=== PATIENT | male | born 1935 | race Two or more races ===

== ENCOUNTER 2023-09-12 21:55 | Inpatient (IN) | payer OTHER ==
[~2023-09-12] VITALS: Ht 162.6 cm; Wt 59.9 kg
[2023-09-12 21:55] VITALS: BP 165/118; PULSE 173; RESP 23; TEMP 97; O2SAT 95
[2023-09-12] MEDS: DILTIAZEM 125 MG in DEXTROSE 5% 100 ML IV ONE (22:05)
[2023-09-12 22:19] LABS: BASOPHILS # (AUTO) 0.1 K/uL (0.00-0.22); BASOPHILS % (AUTO) 0.6 % (0.0-2.0); EOSINOPHILS # (AUTO) 0.4 K/uL (0-0.4); EOSINOPHILS % (AUTO) 3.4 % (0.0-4.0); HEMATOCRIT 43.9 % (36-52); HEMOGLOBIN 14.2 g/dL (12.0-18.0); LYMPHOCYTES # (AUTO) 2.1 K/uL (2.0-11.5); LYMPHOCYTES % (AUTO) 17.9 % (20.5-51.1); MEAN CORPUSCULAR HEMOGLOBIN 30 pg (27-31); MEAN CORPUSCULAR HGB CONC 32 g/dL (33-37); MEAN CORPUSCULAR VOLUME 93.9 fL (80-94); MONOCYTES # (AUTO) 0.8 K/uL (0.8-1.0); MONOCYTES % (AUTO) 7.2 % (1.7-9.3); NEUTROPHILS # (AUTO) 8.1 K/uL (1.8-7.7); NEUTROPHILS % (AUTO) 70.9 % (42.2-75.2); PLATELET COUNT (AUTO) 356 K/uL (140-450); RED BLOOD CELL COUNT(AUTO) 4.68 MIL/uL (4.20-6.10); RED CELL DISTRIBUTION WIDTH 19.2 % (11.6-13.7); WHITE BLOOD COUNT (AUTO) 11.5 K/uL (4.8-10.8)
[2023-09-12] MEDS: DILTIAZEM 25 MG/5 ML VIAL IVP ONE (22:22)
[2023-09-12] MEDS: methylPREDNISolone SS 125 MG/2 ML VIAL IVP ONE (22:24)
[2023-09-12 22:29] LABS: CALCIUM 8.8 mg/dL (8.5-10.1); CARBON DIOXIDE 26.3 mmol/L (21-32); CHLORIDE 103 mmol/L (98-107); CREATININE 1.3 mg/dL (0.6-1.3); GLUCOSE 144 mg/dL (74-106); POTASSIUM 4.3 mmol/L (3.5-5.1); SODIUM SERUM 140 mmol/L (136-145); UREA NITROGEN, BLOOD 20 mg/dL (7-18)
[2023-09-12] MEDS: MAG SULF 2000 MG/WATER PREMIX 50 ML IV ONE (22:30)
[2023-09-12 22:32] LABS: ALBUMIN 3.5 g/dL (3.4-5.0); BILIRUBIN,DIRECT 0.2 mg/dL (0.0-0.3); TOTAL PROTEIN, SERUM 6.4 g/dL (6.4-8.2)
[2023-09-12 22:36] LABS: BLOOD GAS BASE EXCESS -0.9 mmol/L (-2.0-2.0); BLOOD GAS PCO2 31.5 mmHg (35-45); BLOOD GAS PH 7.461 (7.35-7.45); BLOOD GAS PO2 60.9 mmHg (75-100)
[2023-09-12 22:37] LABS: BLOOD GAS O2 SAT% 92.1 % (92.0-98.5)
[2023-09-12] MEDS ORDERED: cefTRIAXone 1,000 MG VIAL ONE (22:45)
[2023-09-12 22:47] LABS: TOTAL BILIRUBIN 0.6 mg/dL (0.0-1.0)
[2023-09-12 22:52] LABS: LACTIC ACID 3.4 mmol/L (0.4-2.0)
[2023-09-12] MEDS ORDERED: AZITHROMYCIN 500 MG INJ VIAL IV ONE (22:59)
[2023-09-12] MEDS: AZITHROMYCIN 500 MG in DEXTROSE 5% 250 ML IV ONE (23:40)
[2023-09-13] VITALS (11 sets, daily range): BP systolic 113–142; BP diastolic 63–85; PULSE 33–140; RESP 18–26; TEMP 97.1–98.7; O2SAT 93–100
[2023-09-13] MEDS ORDERED: POTASSIUM CHLORIDE 10 MEQ TABER PO PRN (00:05)
[2023-09-13] MEDS ORDERED: KCL 20 MEQ IN 100 mL PREMIX 200 ML IV PRN (00:05)
[2023-09-13] MEDS ORDERED: MAGNESIUM OXIDE 400 MG TAB PO PRN (00:05)
[2023-09-13] MEDS ORDERED: ACETAMINOPHEN 325 MG TAB PO PRN (00:05)
[2023-09-13] MEDS ORDERED: MORPHINE SULFATE 2 MG/ML SYR IVP PRN (00:05)
[2023-09-13] MEDS ORDERED: HYDROcodone/APAP 5/325 MG 1 TAB TAB PO PRN (00:05)
[2023-09-13] MEDS ORDERED: MAG SULF 2000 MG/WATER PREMIX 50 ML IV PRN (00:05)
[2023-09-13] MEDS: ALBUTEROL SULFATE/IPRATROPIU 3 ML SOL IH SCH (01:33)
[2023-09-13] MEDS: METOPROLOL 5 MG/5 ML VIAL IVP PRN (02:33)
[2023-09-13] MEDS: FUROSEMIDE 100 MG/10 ML VIAL IV ONE (03:47)
[2023-09-13 06:57] LABS: APPEARANCE,URINE CLEAR (CLEAR); BILIRUBIN,URINE NEGATIVE (NEGATIVE); BLOOD, URINE NEGATIVE (NEGATIVE); COLOR,URINE YELLOW (YELLOW); LEUKOCYTE ESTERASE ,URINE NEGATIVE (NEGATIVE); NITRITE, URINE NEGATIVE (NEGATIVE); PROTEIN,URINE NEGATIVE (NEGATIVE); UGLUCOSE NEGATIVE (NEGATIVE); UROBILINOGEN,URINE 0.2 EU/dL (0.2 - 1)
[2023-09-13] MEDS: BUDESONIDE 0.5 MG/2 ML NEBU INH SCH (07:22)
[2023-09-13] MEDS: METOPROLOL 25 MG TAB PO SCH (09:12)
[2023-09-13] MEDS: ECOTRIN 81 MG TABEC PO SCH (13:30)
[2023-09-13] MEDS: DIGOXIN 0.25 MG/ML AMP IV SCH (13:31)
[2023-09-13] MEDS: DIGOXIN 0.25 MG TAB PO SCH (17:23)
[2023-09-13] MEDS: FUROSEMIDE 20 MG/2 ML VIAL IVP SCH (17:24)
[2023-09-13] MEDS ORDERED: methylPREDNISolone SS 40 MG/ML VIAL IVP SCH (18:00)
[2023-09-13] MEDS ORDERED: CLINICAL MONITORING MC PRN (18:15)
[2023-09-13 18:26] LABS: BASOPHILS # (AUTO) 0.1 K/uL (0.00-0.22); BASOPHILS % (AUTO) 0.5 % (0.0-2.0); HEMATOCRIT 40.5 % (36-52); HEMOGLOBIN 13.5 g/dL (12.0-18.0); LYMPHOCYTES # (AUTO) 0.7 K/uL (2.0-11.5); LYMPHOCYTES % (AUTO) 6.3 % (20.5-51.1); MEAN CORPUSCULAR HEMOGLOBIN 31 pg (27-31); MEAN CORPUSCULAR HGB CONC 33 g/dL (33-37); MEAN CORPUSCULAR VOLUME 92.2 fL (80-94); MONOCYTES # (AUTO) 0.5 K/uL (0.8-1.0); NEUTROPHILS # (AUTO) 10.4 K/uL (1.8-7.7); NEUTROPHILS % (AUTO) 89.2 % (42.2-75.2); PLATELET COUNT (AUTO) 328 K/uL (140-450); RED CELL DISTRIBUTION WIDTH 18.9 % (11.6-13.7); WHITE BLOOD COUNT (AUTO) 11.7 K/uL (4.8-10.8)
[2023-09-13] MEDS: LOVENOX 1MG/KG Q12H SUBQ SCH (21:00)
[2023-09-13] MEDS: METOPROLOL 50 MG TAB PO SCH (22:38)
[2023-09-13] MEDS: methylPREDNISolone SS 40 MG/ML VIAL IVP SCH (22:38)
[2023-09-13] MEDS: ENOXAPARIN 60 MG/0.6 ML SYR SUBQ SCH (22:39)
[2023-09-14] VITALS (11 sets, daily range): BP systolic 114–134; BP diastolic 63–77; PULSE 63–131; RESP 16–20; TEMP 96.7–98.3; O2SAT 94–98
[2023-09-14] MEDS: DIGOXIN 0.25 MG TAB PO SCH (00:56)
[2023-09-14] MEDS: AZITHROMYCIN 500 MG in DEXTROSE 5% 250 ML IV SCH (00:56)
[2023-09-14 06:04] LABS: BASOPHILS % (AUTO) 0.2 % (0.0-2.0); EOSINOPHILS % (AUTO) 0.1 % (0.0-4.0); HEMATOCRIT 40.5 % (36-52); HEMOGLOBIN 13.1 g/dL (12.0-18.0); LYMPHOCYTES % (AUTO) 5.3 % (20.5-51.1); MEAN CORPUSCULAR HEMOGLOBIN 30 pg (27-31); MEAN CORPUSCULAR HGB CONC 32 g/dL (33-37); MEAN CORPUSCULAR VOLUME 93.2 fL (80-94); MONOCYTES # (AUTO) 1.4 K/uL (0.8-1.0); MONOCYTES % (AUTO) 7.3 % (1.7-9.3); NEUTROPHILS # (AUTO) 16.3 K/uL (1.8-7.7); NEUTROPHILS % (AUTO) 87.1 % (42.2-75.2); PLATELET COUNT (AUTO) 324 K/uL (140-450); RED BLOOD CELL COUNT(AUTO) 4.35 MIL/uL (4.20-6.10); RED CELL DISTRIBUTION WIDTH 19.2 % (11.6-13.7); WHITE BLOOD COUNT (AUTO) 18.7 K/uL (4.8-10.8)
[2023-09-14 06:48] LABS: ALANINE AMINOTRANSFERASE 14 U/L (12-78); ALBUMIN 3.3 g/dL (3.4-5.0); ALKALINE PHOSPHATASE 104 U/L (50-136); ANION GAP 14.4 (8-16); ASPARTATE AMINOTRANSFERASE 30 U/L (15-37); CALCIUM 8.9 mg/dL (8.5-10.1); CARBON DIOXIDE 28.6 mmol/L (21-32); CHLORIDE 99 mmol/L (98-107); CREATININE 1.3 mg/dL (0.6-1.3); GLUCOSE 117 mg/dL (74-106); MAGNESIUM 2.5 mg/dL (1.8-2.4); SODIUM SERUM 137 mmol/L (136-145); TOTAL BILIRUBIN 0.3 mg/dL (0.0-1.0); TOTAL PROTEIN, SERUM 7.3 g/dL (6.4-8.2); UREA NITROGEN, BLOOD 31 mg/dL (7-18)
[2023-09-14] MEDS: FAMOTIDINE 20 MG TAB PO SCH (08:53)
[2023-09-14] MEDS: METOPROLOL SUCCINATE 50 MG TABER PO SCH (18:59)
[2023-09-14] MEDS: DIGOXIN 0.125 MG TAB PO SCH (19:00)
[2023-09-14] MEDS: APIXABAN 2.5 MG TAB PO SCH (22:00)
[2023-09-15] VITALS (10 sets, daily range): BP systolic 134–140; BP diastolic 65–70; PULSE 72–98; RESP 16–20; TEMP 96.8–98; O2SAT 95–100
[2023-09-15 05:56] LABS: BASOPHILS % (AUTO) 0.1 % (0.0-2.0); HEMATOCRIT 41.2 % (36-52); HEMOGLOBIN 13.2 g/dL (12.0-18.0); LYMPHOCYTES # (AUTO) 1.1 K/uL (2.0-11.5); LYMPHOCYTES % (AUTO) 6.4 % (20.5-51.1); MEAN CORPUSCULAR HEMOGLOBIN 30 pg (27-31); MEAN CORPUSCULAR HGB CONC 32 g/dL (33-37); MEAN CORPUSCULAR VOLUME 92.8 fL (80-94); MONOCYTES # (AUTO) 1.2 K/uL (0.8-1.0); MONOCYTES % (AUTO) 6.9 % (1.7-9.3); NEUTROPHILS % (AUTO) 86.6 % (42.2-75.2); PLATELET COUNT (AUTO) 335 K/uL (140-450); RED BLOOD CELL COUNT(AUTO) 4.44 MIL/uL (4.20-6.10); RED CELL DISTRIBUTION WIDTH 19.6 % (11.6-13.7); WHITE BLOOD COUNT (AUTO) 17.4 K/uL (4.8-10.8)
[2023-09-15 06:44] LABS: ALANINE AMINOTRANSFERASE 19 U/L (12-78); ALBUMIN 3.3 g/dL (3.4-5.0); ALKALINE PHOSPHATASE 108 U/L (50-136); ANION GAP 12.9 (8-16); ASPARTATE AMINOTRANSFERASE 22 U/L (15-37); CALCIUM 9.4 mg/dL (8.5-10.1); CHLORIDE 98 mmol/L (98-107); CREATININE 1.3 mg/dL (0.6-1.3); GLUCOSE 100 mg/dL (74-106); MAGNESIUM 2.7 mg/dL (1.8-2.4); POTASSIUM 4.9 mmol/L (3.5-5.1); SODIUM SERUM 138 mmol/L (136-145); TOTAL BILIRUBIN 0.3 mg/dL (0.0-1.0); TOTAL PROTEIN, SERUM 7.6 g/dL (6.4-8.2); UREA NITROGEN, BLOOD 40 mg/dL (7-18)
[2023-09-15] MEDS: DIGOXIN 0.125 MG TAB PO SCH (08:47)
[2023-09-15] MEDS: predniSONE 20 MG TAB PO SCH (08:48)
[2023-09-15] MEDS: LOSARTAN 25 MG TAB PO SCH (10:01)
[2023-09-15] MEDS ORDERED: DIGO0.1211 PO (17:46)
[2023-09-15] MEDS ORDERED: PRED20TA5 PO (17:46)
[2023-09-15] MEDS ORDERED: DOXY-690 PO (17:46)
[2023-09-15] MEDS ORDERED: LOSA-269 PO (17:46)
[2023-09-15] MEDS ORDERED: METO50TE2 PO (17:46)
[2023-09-15] MEDS ORDERED: ALBU3SOL83 IH (17:46)
[2023-09-15] MEDS ORDERED: APIX2.5 PO (17:46)
== END 2023-09-15 19:05 | disposition home or self-care (01) | DRG 871 ==
LOC: MED 21:55 → MTU 09-13 00:09
PROVIDERS: ADMIT Hospitalist; ATTEND Hospitalist
DX: A41.9 Sepsis, unspecified organism (principal); I50.23 Acute on chronic systolic (congestive) heart failure; J96.01 Acute respiratory failure with hypoxia; J18.9 Pneumonia, unspecified organism; J44.1 Chronic obstructive pulmonary disease with (acute) exacerbation; I42.9 Cardiomyopathy, unspecified; I24.89 Other forms of acute ischemic heart disease; I11.0 Hypertensive heart disease with heart failure; F17.200 Nicotine dependence, unspecified, uncomplicated; I35.0 Nonrheumatic aortic (valve) stenosis; I48.91 Unspecified atrial fibrillation; Z79.01 Long term (current) use of anticoagulants; Z71.6 Tobacco abuse counseling
CPT/HCPCS: 36415; 36600; 71045; 80048; 80053; 80076; 81003; 82803; 83036; 83605; 83735; 83880; 84484; 85025; 87040; 87081; 87086; 93005; 94010; 94640; 96365; 96366; 96368; 96375; 97116; 97163-GP; 99291; J0456; J0696; J1160; J1644; J1650; J1940; J2920; J2930; J3475; J3490; J7060; J7512; J7626; Q0092

== ENCOUNTER 2023-10-27 14:30 | Emergency (ER) | payer OTHER ==
[~2023-10-27] VITALS: Ht 167.6 cm; Wt 54.4 kg
[~2023-10-27 14:30] MED LIST: ALBU3SOL83 IH; APIX2.5 PO; DIGO0.1211 PO; DOXY-690 PO; LOSA-269 PO; METO50TE2 PO; PRED20TA5 PO
[2023-10-27 14:37] VITALS: BP 0/0; PULSE 0; RESP 8
[2023-10-27] MEDS ORDERED: CODE BLUE PARTICIPANT 1 EA MISC MC ONE (14:55)
== END 2023-10-27 14:33 ==
LOC: MED 14:30
DX: I46.9 Cardiac arrest, cause unspecified (principal); I11.0 Hypertensive heart disease with heart failure; I50.9 Heart failure, unspecified; Z79.2 Long term (current) use of antibiotics; Z79.899 Other long term (current) drug therapy
CPT/HCPCS: 92950; 99285; J0171